=== PATIENT | male | born 1960 | race Caucasian/White ===

== ENCOUNTER 2018-12-19 16:10 | Inpatient (IN) | payer MEDICAID ==
[~2018-12-19] VITALS: Ht 185.4 cm; Wt 84.1 kg
[2018-12-19] MEDS ORDERED: LORazepam 2 MG/ML VIAL IM ONE (16:30)
[2018-12-19] MEDS ORDERED: DiphenhydrAMINE HCL 50 MG/ML VIAL IM ONE (16:30)
[2018-12-19] MEDS ORDERED: HALOPERIDOL LACTATE 5 MG/ML VIAL IM ONE (16:30)
[2018-12-19 17:05] LABS: EOSINOPHILS % (AUTO) 1.5 % (1.0-6.0); HEMATOCRIT 27.9 % (41-53); HEMOGLOBIN 9.4 g/dL (13.5-17.5); LYMPHOCYTES # (AUTO) 0.9 K/uL (1.0-4.8); LYMPHOCYTES % (AUTO) 14.1 % (22.0-44.0); MEAN CORPUSCULAR HEMOGLOBIN 30.2 pg (26.0-34.0); MEAN CORPUSCULAR HGB CONC 33.6 G/dL (31.0-37.0); MEAN CORPUSCULAR VOLUME 90 fL (80-100); MONOCYTES # (AUTO) 0.3 K/uL (0.1-1.0); MONOCYTES % (AUTO) 4.3 % (2.0-9.0); NEUTROPHILS # (AUTO) 4.8 K/uL (1.8-7.7); NEUTROPHILS % (AUTO) 79.1 % (40.0-70.0); PLATELET COUNT (AUTO) 383 K/uL (150-450); RED CELL DISTRIBUTION WIDTH 12.9 % (11.5-14.5)
[2018-12-19 17:15] LABS: ANION GAP 0 mmol/L (8-16); CALCIUM, TOTAL 8.2 mg/dL (8.8-10.5); CARBON DIOXIDE 31 mmol/L (22-29); CHLORIDE 104 mmol/L (98-107); CREATININE 1.21 mg/dL (0.60-1.30); GLOMERULAR FILTR. RATE CALC > 60 mL/min (>60); GLUCOSE,RANDOM 215 mg/dL (70-110); POTASSIUM 4.7 mmol/L (3.5-5.1); SODIUM SERUM 135 mmol/L (136-145); UREA NITROGEN, BLOOD 30 mg/dL (7-18)
[2018-12-19 17:31] LABS: ALANINE AMINOTRANSFERASE 14 U/L (12-78); ALBUMIN 1.7 g/dL (3.4-5.0); ALKALINE PHOSPHATASE 122 U/L (46-116); ASPARTATE AMINOTRANSFERASE 17 U/L (15-37); BILIRUBIN,TOTAL 0.1 mg/dL (0.1-1.0); THYROID STIMULATING HORMONE 2.62 uIU/mL (0.36-3.74)
[2018-12-19 20:02] LABS: APPEARANCE,URINE CLEAR (CLEAR); BILIRUBIN,URINE NEGATIVE (NEGATIVE); GLUCOSE, URINE (UA) 250 mg/dL (NEGATIVE); KETONES,URINE NEGATIVE (NEGATIVE); LEUKOCYTE ESTERASE ,URINE NEGATIVE (NEGATIVE); NITRATE,URINE NEGATIVE (NEGATIVE); OCCULT BLOOD,URINE NEGATIVE (NEGATIVE); PROTEIN,URINE SEE CONFIRM (NEGATIVE); UROBILINOGEN,URINE 0.2 mg/dL (<=1.0)
[2018-12-19 20:06] LABS: AMPHET/METH SCREEN,URINE NEGATIVE (NEGATIVE); BARBITURATE SCREEN, URINE NEGATIVE (NEGATIVE); BENZODIAZEPINES SCREEN,URINE NEGATIVE (NEGATIVE); CANNABINOID SCREEN,URINE NEGATIVE (NEGATIVE); COCAINE SCREEN,URINE NEGATIVE (NEGATIVE); METHADONE SCREEN, URINE NEGATIVE (NEGATIVE); OPIATE SCREEN,URINE NEGATIVE (NEGATIVE)
[2018-12-19 20:15] LABS: PHENCYCLIDINE SCREEN,URINE NEGATIVE (NEGATIVE)
[2018-12-19 20:21] LABS: SULFOSALICYLIC ACID,URINE 4+ (Negative)
[2018-12-19 20:22] LABS: RBC,URINE None Seen /HPF (0-2); WBC,URINE 0-2 /HPF (0-5)
[2018-12-19 20:23] LABS: BACTERIA,URINE Few /HPF (None Seen); SQUAMOUS EPITHELIAL CELL,UR Rare /LPF (None Seen)
[2018-12-20 13:19] LABS: GLUCOSE,POINT OF CARE 250 MG/DL (70-110)
[2018-12-20] MEDS ORDERED: LORazepam 2 MG TABLET PO PRN (13:30)
[2018-12-20] MEDS ORDERED: ZOLPIDEM TARTRATE 10 MG TABLET PO PRN (13:30)
[2018-12-20] MEDS ORDERED: OLANZapine 5 MG RAPDIS TABLET PO PRN (13:30)
[2018-12-20 16:28] VITALS: BP 134/78
[2018-12-20 16:34] LABS: GLUCOMETER DEV NAME(LOC) AHU.; GLUCOSE,POINT OF CARE 259 MG/DL (70-110)
== END 2018-12-20 21:00 | disposition short-term general hospital (02) | DRG 750 ==
LOC: EMS 16:12 → AHU 12-20 15:13
PROVIDERS: ADMIT Psychiatry & Neurology Psychiatry; ATTEND Psychiatry & Neurology Psychiatry
DX: F25.0 Schizoaffective disorder, bipolar type (principal); E66.01 Morbid (severe) obesity due to excess calories; F39 Unspecified mood [affective] disorder; E11.9 Type 2 diabetes mellitus without complications; Z98.84 Bariatric surgery status; Z89.429 Acquired absence of other toe(s), unspecified side; Z91.19 Patient's noncompliance with other medical treatment and regimen; Z68.24 Body mass index [BMI] 24.0-24.9, adult
CPT/HCPCS: 84443; 96372; 99291; G0378; G0480; J1200; J1630; J2060

== ENCOUNTER 2020-05-09 09:35 | Emergency (ER) | payer MEDICAID ==
[~2020-05-09] VITALS: Ht 175.3 cm; Wt 97.7 kg
[2020-05-09] MEDS ORDERED: SODIUM CHLORIDE 0.9% 1,000 ML IV ONE (10:30)
[2020-05-09 11:15] LABS: BASOPHILS % (AUTO) 0.7 % (0.0-2.0); EOSINOPHILS % (AUTO) 3.4 % (1.0-6.0); HEMATOCRIT 36.2 % (41-53); HEMOGLOBIN 11.9 g/dL (13.5-17.5); LYMPHOCYTES # (AUTO) 0.7 K/uL (1.0-4.8); LYMPHOCYTES % (AUTO) 11.1 % (22.0-44.0); MEAN CORPUSCULAR HEMOGLOBIN 30.5 pg (26.0-34.0); MEAN CORPUSCULAR HGB CONC 32.8 G/dL (31.0-37.0); MEAN CORPUSCULAR VOLUME 93 fL (80-100); MONOCYTES # (AUTO) 0.3 K/uL (0.1-1.0); MONOCYTES % (AUTO) 4.8 % (2.0-9.0); NEUTROPHILS # (AUTO) 5.3 K/uL (1.8-7.7); PLATELET COUNT (AUTO) 197 K/uL (150-450); RED CELL DISTRIBUTION WIDTH 12.8 % (11.5-14.5)
[2020-05-09 11:24] LABS: CALCIUM, TOTAL 8.7 mg/dL (8.8-10.5); CREATININE 2.62 mg/dL (0.60-1.30); POTASSIUM 4.6 mmol/L (3.5-5.1)
[2020-05-09 11:29] LABS: ALBUMIN 2.5 g/dL (3.4-5.0); BILIRUBIN,TOTAL 0.2 mg/dL (0.1-1.0); TOTAL PROTEIN, SERUM 6.9 g/dL (6.4-8.2)
[2020-05-09 15:00] VITALS: BP 129/69
== END 2020-05-09 15:28 | disposition home or self-care (01) ==
LOC: EMS 09:36
DX: S81.801A Unspecified open wound, right lower leg, initial encounter (principal); E11.65 Type 2 diabetes mellitus with hyperglycemia; F31.9 Bipolar disorder, unspecified; F20.9 Schizophrenia, unspecified; F17.200 Nicotine dependence, unspecified, uncomplicated; Z88.5 Allergy status to narcotic agent; W50.3XXA Accidental bite by another person, initial encounter; Y93.89 Activity, other specified; Y92.89 Other specified places as the place of occurrence of the external cause; Y99.8 Other external cause status
CPT/HCPCS: 36415; 80053; 85025; 96360; 99283; J7030

== ENCOUNTER 2020-10-07 12:47 | Inpatient (IN) | payer MEDICAID ==
[~2020-10-07] VITALS: Ht 182.9 cm; Wt 108.5 kg
[2020-10-07 14:56] LABS: COVID AG,FIA SOURCE NASAL SWAB
[2020-10-07 15:16] LABS: BASOPHILS % (AUTO) 0.2 % (0.0-2.0); EOSINOPHILS % (AUTO) 0.6 % (1.0-6.0); HEMATOCRIT 34.9 % (41-53); HEMOGLOBIN 11.5 g/dL (13.5-17.5); LYMPHOCYTES # (AUTO) 0.6 K/uL (1.0-4.8); LYMPHOCYTES % (AUTO) 9.6 % (22.0-44.0); MEAN CORPUSCULAR HEMOGLOBIN 30.2 pg (26.0-34.0); MEAN CORPUSCULAR VOLUME 92 fL (80-100); MONOCYTES # (AUTO) 0.5 K/uL (0.1-1.0); MONOCYTES % (AUTO) 9.2 % (2.0-9.0); NEUTROPHILS # (AUTO) 4.6 K/uL (1.8-7.7); NEUTROPHILS % (AUTO) 80.4 % (40.0-70.0); PLATELET COUNT (AUTO) 202 K/uL (150-450); RED BLOOD CELL COUNT(AUTO) 3.81 MIL/uL (4.50-5.90); RED CELL DISTRIBUTION WIDTH 13.3 % (11.5-14.5)
[2020-10-07 15:33] LABS: CALCIUM, TOTAL 8.2 mg/dL (8.8-10.5); CREATININE 3.21 mg/dL (0.60-1.30); POTASSIUM 4.6 mmol/L (3.5-5.1)
[2020-10-07 15:40] LABS: BILIRUBIN,TOTAL 0.4 mg/dL (0.1-1.0); TOTAL PROTEIN, SERUM 6.7 g/dL (6.4-8.2)
[2020-10-07] MEDS ORDERED: ASPIRIN 325 MG TABLET PO ONE (19:00)
[2020-10-07 20:18] LABS: C-REACTIVE PROTEIN QUANT 15.27 mg/dL (0.00-0.30)
[2020-10-07] MEDS ORDERED: SODIUM CHLORIDE 0.9% 1,000 ML IV ONE (22:00)
[2020-10-07] MEDS ORDERED: DEXTROSE 50%-WATER 25 GM/50 ML SYRINGE IVP PRN (22:00)
[2020-10-07] MEDS ORDERED: HEPARIN SODIUM,PORCINE 5,000 UNITS/ML VIAL IVP PRN (22:00)
[2020-10-07 22:32] LABS: PROTHROMBIN TIME 10.9 SEC (9.4-11.6)
[2020-10-08] MEDS: HEPARIN SODIUM,PORCINE 5,000 UNITS/ML VIAL IVP PRN ×2 (00:01→06:40)
[2020-10-08] MEDS: HEPARIN SODIUM 25000 UNITS/D5W 250 ML IV PRN ×2 (00:29→16:05)
[2020-10-08] MEDS: ACETAMINOPHEN 325 MG TABLET PO PRN ×2 (03:10→09:58)
[2020-10-08 04:42] LABS: ABG A-A DIFF O2 597.9 mmHg (10-20.0); ABG BASE EXCESS -8.7 mmol/L (-2.0-3.0); ABG CARBOXYHEMOGLOBIN 0.3 % (0.0-1.5); ABG HCO3 18.1 mmol/L (22.0-26.0); ABG METHEMOGLOBIN 0.2 % (0.0-1.5); ABG OXYGEN CONTENT 16.5 mL/dL (15.0-23.0); ABG OXYGEN SATURATION 94.4 % (95.0-98.0); ABG OXYHEMOGLOBIN 93.9 % (94.0-100.0); ABG PCO2 36 mmHg (35-45); ABG PH 7.305 (7.35-7.450); ABG TOTAL HEMOGLOBIN 12.5 G/dL (12.0-18.0); SITE, BLOOD GAS LFT RADIAL; SOURCE, BLOOD GAS ARTERIAL; TEMPERATURE, FAHRENHEIT, BG 99.9 FAHREN (96.0-98.6)
[2020-10-08 04:43] LABS: O2 DEVICE,BLOOD GAS NRB (ROOM AIR)
[2020-10-08 06:07] LABS: BASOPHILS % (AUTO) 0.2 % (0.0-2.0); EOSINOPHILS % (AUTO) 0.2 % (1.0-6.0); HEMATOCRIT 33.7 % (41-53); HEMOGLOBIN 11.2 g/dL (13.5-17.5); LYMPHOCYTES # (AUTO) 0.3 K/uL (1.0-4.8); LYMPHOCYTES % (AUTO) 2.9 % (22.0-44.0); MEAN CORPUSCULAR HEMOGLOBIN 30.3 pg (26.0-34.0); MEAN CORPUSCULAR HGB CONC 33.2 G/dL (31.0-37.0); MEAN CORPUSCULAR VOLUME 91 fL (80-100); MONOCYTES # (AUTO) 0.5 K/uL (0.1-1.0); MONOCYTES % (AUTO) 5.1 % (2.0-9.0); NEUTROPHILS # (AUTO) 8.6 K/uL (1.8-7.7); PLATELET COUNT (AUTO) 222 K/uL (150-450); RED BLOOD CELL COUNT(AUTO) 3.68 MIL/uL (4.50-5.90); RED CELL DISTRIBUTION WIDTH 13.5 % (11.5-14.5)
[2020-10-08 06:13] LABS: NEUTROPHILS % (AUTO) 91.6 % (40.0-70.0)
[2020-10-08 06:19] LABS: D-DIMER 1.55 mg/L FEU (0.00-0.50)
[2020-10-08 06:35] LABS: ALBUMIN 1.8 g/dL (3.4-5.0); BILIRUBIN,TOTAL 0.4 mg/dL (0.1-1.0); C-REACTIVE PROTEIN QUANT 13.2 mg/dL (0.00-0.30); CALCIUM, TOTAL 7.9 mg/dL (8.8-10.5); CREATININE 3.25 mg/dL (0.60-1.30); POTASSIUM 4.5 mmol/L (3.5-5.1); TOTAL PROTEIN, SERUM 6.6 g/dL (6.4-8.2)
[2020-10-08] MEDS: INSULIN LISPRO 100 UNITS/ML SQ PRN ×4 (06:57→21:17)
[2020-10-08] MEDS ORDERED: DEXTROSE 50%-WATER 25 GM/50 ML SYRINGE IVP PRN (07:00)
[2020-10-08 07:01] LABS: GLUCOSE,POINT OF CARE 186 MG/DL (70-110)
[2020-10-08 08:40] LABS: GLUCOSE,POINT OF CARE 162 MG/DL (70-110)
[2020-10-08] MEDS: CARVEDILOL 3.125 MG TABLET PO SCH ×2 (09:58→20:16)
[2020-10-08] MEDS: DEXAMETHASONE SOD PHOS 4 MG/ML VIAL IVP SCH (09:58)
[2020-10-08] MEDS: ASPIRIN 81 MG CHEWABLE TABLET PO SCH (09:59)
[2020-10-08 10:23] VITALS: BP 141/71
[2020-10-08] MEDS ORDERED: SODIUM CHLORIDE 0.9% 500 ML IV ONE (11:33)
[2020-10-08] MEDS: AZITHROMYCIN 500 MG/NS 250 ML IV SCH (11:39)
[2020-10-08] MEDS ORDERED: REMDESIVIR 200 MG in SODIUM CHLORIDE 0.9% 250 ML IV ONE (12:00)
[2020-10-08 14:36] LABS: GLUCOMETER DEV NAME(LOC) 5N.3; GLUCOSE,POINT OF CARE 203 MG/DL (70-110)
[2020-10-08 15:26] VITALS: BP 130/74
[2020-10-08 20:00] VITALS: BP 155/83
[2020-10-08] MEDS ORDERED: INSULIN GLARGINE,HUM.REC.ANLOG 100 UNITS/ML SQ SCH (21:00)
[2020-10-08] MEDS: INSULIN GLARGINE,HUM.REC.ANLOG 100 UNITS/ML SQ SCH (21:17)
[2020-10-09] VITALS (7 sets, daily range): BP systolic 100–155; BP diastolic 54–77
[2020-10-09] MEDS: ACETAMINOPHEN 325 MG TABLET PO PRN (06:07)
[2020-10-09] MEDS: INSULIN LISPRO 100 UNITS/ML SQ PRN ×3 (06:09→17:14)
[2020-10-09 06:30] LABS: EOSINOPHILS % (AUTO) 0 % (1.0-6.0); HEMATOCRIT 32.7 % (41-53); HEMOGLOBIN 10.5 g/dL (13.5-17.5); LYMPHOCYTES # (AUTO) 0.4 K/uL (1.0-4.8); LYMPHOCYTES % (AUTO) 2.3 % (22.0-44.0); MEAN CORPUSCULAR HEMOGLOBIN 29.3 pg (26.0-34.0); MEAN CORPUSCULAR HGB CONC 32.2 G/dL (31.0-37.0); MEAN CORPUSCULAR VOLUME 91 fL (80-100); MONOCYTES # (AUTO) 0.6 K/uL (0.1-1.0); MONOCYTES % (AUTO) 3.6 % (2.0-9.0); NEUTROPHILS # (AUTO) 15.9 K/uL (1.8-7.7); PLATELET COUNT (AUTO) 278 K/uL (150-450); RED BLOOD CELL COUNT(AUTO) 3.59 MIL/uL (4.50-5.90); RED CELL DISTRIBUTION WIDTH 13.6 % (11.5-14.5)
[2020-10-09 06:33] LABS: NEUTROPHILS % (AUTO) 94.1 % (40.0-70.0)
[2020-10-09 06:42] LABS: D-DIMER 1.51 mg/L FEU (0.00-0.50)
[2020-10-09 07:15] LABS: ALBUMIN 1.6 g/dL (3.4-5.0); BILIRUBIN,TOTAL 0.4 mg/dL (0.1-1.0); C-REACTIVE PROTEIN QUANT 24.77 mg/dL (0.00-0.30); CALCIUM, TOTAL 7.9 mg/dL (8.8-10.5); CREATININE 3.6 mg/dL (0.60-1.30); POTASSIUM 4.9 mmol/L (3.5-5.1); TOTAL PROTEIN, SERUM 6.3 g/dL (6.4-8.2)
[2020-10-09] MEDS: CARVEDILOL 3.125 MG TABLET PO SCH (09:00)
[2020-10-09] MEDS ORDERED: CHOLECALCIFEROL (VIT D3) 1,000 UNITS [25 MCG] TABLET PO SCH (09:00)
[2020-10-09] MEDS ORDERED: FAMOTIDINE 20 MG TABLET PO SCH (09:00)
[2020-10-09] MEDS: ZINC SULFATE 220 MG CAPSULE PO SCH (09:40)
[2020-10-09] MEDS: DEXAMETHASONE SOD PHOS 4 MG/ML VIAL IVP SCH (09:40)
[2020-10-09] MEDS: ASPIRIN 81 MG CHEWABLE TABLET PO SCH (09:40)
[2020-10-09] MEDS: HEPARIN SODIUM,PORCINE 5,000 UNITS/ML VIAL IVP PRN (11:36)
[2020-10-09] MEDS: SODIUM CHLORIDE 1 GM TABLET PO SCH (11:54)
[2020-10-09] MEDS: CHOLECALCIFEROL (VIT D3) 1,000 UNITS [25 MCG] TABLET PO SCH (11:54)
[2020-10-09] MEDS ORDERED: REMDESIVIR 100 MG in SODIUM CHLORIDE 0.9% 250 ML IV SCH (12:00)
[2020-10-09] MEDS: HEPARIN SODIUM 25000 UNITS/D5W 250 ML IV PRN (12:01)
[2020-10-09] MEDS: AZITHROMYCIN 500 MG/NS 250 ML IV SCH (12:02)
[2020-10-09] MEDS: FAMOTIDINE 20 MG TABLET PO SCH (12:02)
[2020-10-09] MEDS ORDERED: SODIUM CHLORIDE 0.9% 1,000 ML IV ONE (13:30)
[2020-10-09] MEDS ORDERED: REMDESIVIR 200 MG in SODIUM CHLORIDE 0.9% 250 ML IV ONE (15:00)
[2020-10-09 21:32] LABS: GLUCOMETER DEV NAME(LOC) 5S.1; GLUCOSE,POINT OF CARE 299 MG/DL (70-110)
[2020-10-10] MEDS: CARVEDILOL 3.125 MG TABLET PO SCH ×3 (00:18→22:03)
[2020-10-10] MEDS: SODIUM CHLORIDE 1 GM TABLET PO SCH ×3 (00:18→22:03)
[2020-10-10] MEDS: INSULIN LISPRO 100 UNITS/ML SQ PRN ×5 (00:21→22:12)
[2020-10-10] MEDS: INSULIN GLARGINE,HUM.REC.ANLOG 100 UNITS/ML SQ SCH ×2 (00:22→22:13)
[2020-10-10] MEDS: HEPARIN SODIUM 25000 UNITS/D5W 250 ML IV PRN ×2 (01:18→16:04)
[2020-10-10 04:38] VITALS: BP 142/81
[2020-10-10 05:00] LABS: GLUCOMETER DEV NAME(LOC) 5N.1B; GLUCOSE,POINT OF CARE 309 MG/DL (70-110)
[2020-10-10 06:18] LABS: BASOPHILS % (AUTO) 0.1 % (0.0-2.0); EOSINOPHILS % (AUTO) 0 % (1.0-6.0); HEMATOCRIT 30.6 % (41-53); HEMOGLOBIN 10.6 g/dL (13.5-17.5); LYMPHOCYTES # (AUTO) 0.2 K/uL (1.0-4.8); LYMPHOCYTES % (AUTO) 1.7 % (22.0-44.0); MEAN CORPUSCULAR HEMOGLOBIN 30.9 pg (26.0-34.0); MEAN CORPUSCULAR HGB CONC 34.5 G/dL (31.0-37.0); MEAN CORPUSCULAR VOLUME 90 fL (80-100); MONOCYTES # (AUTO) 0.6 K/uL (0.1-1.0); MONOCYTES % (AUTO) 4.2 % (2.0-9.0); NEUTROPHILS # (AUTO) 13.9 K/uL (1.8-7.7); PLATELET COUNT (AUTO) 296 K/uL (150-450); RED BLOOD CELL COUNT(AUTO) 3.42 MIL/uL (4.50-5.90); RED CELL DISTRIBUTION WIDTH 13.5 % (11.5-14.5)
[2020-10-10 06:49] LABS: D-DIMER 1.76 mg/L FEU (0.00-0.50)
[2020-10-10 06:53] LABS: GLUCOMETER DEV NAME(LOC) 5N.1B; GLUCOSE,POINT OF CARE 222 MG/DL (70-110)
[2020-10-10 07:07] LABS: ALBUMIN 1.5 g/dL (3.4-5.0); BILIRUBIN,TOTAL 0.2 mg/dL (0.1-1.0); C-REACTIVE PROTEIN QUANT 23.15 mg/dL (0.00-0.30); CALCIUM, TOTAL 8.1 mg/dL (8.8-10.5); CREATININE 4.14 mg/dL (0.60-1.30); POTASSIUM 4.9 mmol/L (3.5-5.1); TOTAL PROTEIN, SERUM 6.3 g/dL (6.4-8.2)
[2020-10-10] MEDS: HEPARIN SODIUM,PORCINE 5,000 UNITS/ML VIAL IVP PRN (07:40)
[2020-10-10 07:52] VITALS: BP 137/82
[2020-10-10] MEDS: ASPIRIN 81 MG CHEWABLE TABLET PO SCH (08:57)
[2020-10-10] MEDS: CHOLECALCIFEROL (VIT D3) 1,000 UNITS [25 MCG] TABLET PO SCH (08:57)
[2020-10-10] MEDS: FAMOTIDINE 20 MG TABLET PO SCH (08:57)
[2020-10-10] MEDS: ZINC SULFATE 220 MG CAPSULE PO SCH (08:57)
[2020-10-10] MEDS: DEXAMETHASONE SOD PHOS 4 MG/ML VIAL IVP SCH (08:58)
[2020-10-10 11:14] VITALS: BP 108/61
[2020-10-10] MEDS: AZITHROMYCIN 500 MG/NS 250 ML IV SCH (11:14)
[2020-10-10] MEDS: SODIUM BICARBONATE 75 MEQ in SODIUM CHLORIDE 0.45% 1,000 ML IV SCH (12:59)
[2020-10-10 15:32] LABS: APPEARANCE,URINE TURBID (CLEAR); GLUCOSE, URINE (UA) 250 mg/dL (NEGATIVE); KETONES,URINE NEGATIVE (NEGATIVE); LEUKOCYTE ESTERASE ,URINE LARGE (NEGATIVE); NITRATE,URINE NEGATIVE (NEGATIVE); OCCULT BLOOD,URINE MODERATE (NEGATIVE); PROTEIN,URINE SEE CONFIRM (NEGATIVE); UROBILINOGEN,URINE 0.2 mg/dL (<=1.0)
[2020-10-10 15:38] LABS: SODIUM,URINE RANDOM 49 mmol/l (20-110)
[2020-10-10 15:52] LABS: CREATININE,URINE RANDOM 121.1 mg/dL (30.0-125.0)
[2020-10-10 15:59] LABS: PROTEIN,URINE RANDOM 490 mg/dL (0-11.9)
[2020-10-10] MEDS ORDERED: REMDESIVIR 100 MG in SODIUM CHLORIDE 0.9% 250 ML IV SCH (16:00)
[2020-10-10] MEDS: CefTRIAXone 1 GM/DEXTROSE 50 ML IV SCH (16:03)
[2020-10-10 16:06] VITALS: BP 133/71
[2020-10-10 16:12] LABS: BILIRUBIN,URINE PRELIM. POSITIVE (NEGATIVE)
[2020-10-10 16:24] LABS: SULFOSALICYLIC ACID,URINE 4+ (Negative)
[2020-10-10 16:28] LABS: BACTERIA,URINE Many /HPF (None Seen); WBC,URINE >100 /HPF (0-5)
[2020-10-10 16:29] LABS: SQUAMOUS EPITHELIAL CELL,UR Few /LPF (None Seen)
[2020-10-10 19:02] LABS: GLUCOMETER DEV NAME(LOC) 5N.3; GLUCOSE,POINT OF CARE 230 MG/DL (70-110)
[2020-10-10 19:02] LABS: GLUCOMETER DEV NAME(LOC) 5S.1; GLUCOSE,POINT OF CARE 265 MG/DL (70-110)
[2020-10-10 19:02] LABS: GLUCOMETER DEV NAME(LOC) 5N.3; GLUCOSE,POINT OF CARE 353 MG/DL (70-110)
[2020-10-10 19:03] LABS: GLUCOMETER DEV NAME(LOC) 5N.3; GLUCOSE,POINT OF CARE 287 MG/DL (70-110)
[2020-10-10 19:04] LABS: GLUCOMETER DEV NAME(LOC) 5N.3; GLUCOSE,POINT OF CARE 323 MG/DL (70-110)
[2020-10-10 19:38] VITALS: BP 134/79
[2020-10-10 21:59] LABS: GLUCOMETER DEV NAME(LOC) 5N.1B; GLUCOSE,POINT OF CARE 313 MG/DL (70-110)
[2020-10-10 22:49] LABS: GLUCOMETER DEV NAME(LOC) 5N.3; GLUCOSE,POINT OF CARE 337 MG/DL (70-110)
[2020-10-10 23:46] VITALS: BP 140/79
[2020-10-11 04:28] VITALS: BP 129/72
[2020-10-11] MEDS: SODIUM BICARBONATE 75 MEQ in SODIUM CHLORIDE 0.45% 1,000 ML IV SCH ×2 (05:31→21:53)
[2020-10-11] MEDS: INSULIN LISPRO 100 UNITS/ML SQ PRN ×4 (05:51→21:57)
[2020-10-11 07:22] LABS: BASOPHILS % (AUTO) 0.1 % (0.0-2.0); EOSINOPHILS % (AUTO) 0 % (1.0-6.0); HEMATOCRIT 27.7 % (41-53); HEMOGLOBIN 9.1 g/dL (13.5-17.5); LYMPHOCYTES # (AUTO) 0.4 K/uL (1.0-4.8); MEAN CORPUSCULAR HGB CONC 32.8 G/dL (31.0-37.0); MEAN CORPUSCULAR VOLUME 92 fL (80-100); MONOCYTES # (AUTO) 0.3 K/uL (0.1-1.0); MONOCYTES % (AUTO) 3.5 % (2.0-9.0); NEUTROPHILS # (AUTO) 9.1 K/uL (1.8-7.7); NEUTROPHILS % (AUTO) 92.4 % (40.0-70.0); PLATELET COUNT (AUTO) 304 K/uL (150-450); RED BLOOD CELL COUNT(AUTO) 3.03 MIL/uL (4.50-5.90); RED CELL DISTRIBUTION WIDTH 13.4 % (11.5-14.5)
[2020-10-11 07:25] VITALS: BP 132/80
[2020-10-11 07:47] LABS: D-DIMER 1.43 mg/L FEU (0.00-0.50)
[2020-10-11 08:09] LABS: ALBUMIN 1.4 g/dL (3.4-5.0); BILIRUBIN,TOTAL 0.3 mg/dL (0.1-1.0); C-REACTIVE PROTEIN QUANT 16.54 mg/dL (0.00-0.30); CALCIUM, TOTAL 8.1 mg/dL (8.8-10.5); CREATININE 4.12 mg/dL (0.60-1.30); POTASSIUM 5.1 mmol/L (3.5-5.1); TOTAL PROTEIN, SERUM 6.2 g/dL (6.4-8.2)
[2020-10-11] MEDS: SODIUM CHLORIDE 1 GM TABLET PO SCH (08:41)
[2020-10-11] MEDS: CHOLECALCIFEROL (VIT D3) 1,000 UNITS [25 MCG] TABLET PO SCH (08:41)
[2020-10-11] MEDS: CARVEDILOL 3.125 MG TABLET PO SCH ×2 (08:42→21:55)
[2020-10-11] MEDS: ZINC SULFATE 220 MG CAPSULE PO SCH (08:42)
[2020-10-11] MEDS: ASPIRIN 81 MG CHEWABLE TABLET PO SCH (08:42)
[2020-10-11] MEDS: FAMOTIDINE 20 MG TABLET PO SCH (08:42)
[2020-10-11] MEDS: DEXAMETHASONE SOD PHOS 4 MG/ML VIAL IVP SCH (08:47)
[2020-10-11 10:37] LABS: GLUCOMETER DEV NAME(LOC) 5S.1; GLUCOSE,POINT OF CARE 317 MG/DL (70-110)
[2020-10-11 11:20] VITALS: BP 128/73
[2020-10-11] MEDS: AZITHROMYCIN 500 MG/NS 250 ML IV SCH (11:35)
[2020-10-11] MEDS ORDERED: SODIUM CHLORIDE 0.9% 250 ML IV ONE (14:34)
[2020-10-11] MEDS: CefTRIAXone 1 GM/DEXTROSE 50 ML IV SCH (14:45)
[2020-10-11 15:55] VITALS: BP 126/78
[2020-10-11 16:28] LABS: GLUCOMETER DEV NAME(LOC) 5S.1; GLUCOSE,POINT OF CARE 325 MG/DL (70-110)
[2020-10-11 17:17] LABS: GLUCOMETER DEV NAME(LOC) 5S.2B; GLUCOSE,POINT OF CARE 383 MG/DL (70-110)
[2020-10-11] MEDS ORDERED: INSULIN GLARGINE,HUM.REC.ANLOG 100 UNITS/ML SQ SCH (21:00)
[2020-10-11 21:34] VITALS: BP 130/72
[2020-10-12 00:15] VITALS: BP 142/86
[2020-10-12] MEDS: HEPARIN SODIUM 25000 UNITS/D5W 250 ML IV PRN ×2 (00:23→14:30)
[2020-10-12 06:03] VITALS: BP 150/93
[2020-10-12] MEDS: INSULIN LISPRO 100 UNITS/ML SQ PRN ×4 (06:35→21:27)
[2020-10-12 07:43] LABS: GLUCOMETER DEV NAME(LOC) 5S.2B; GLUCOSE,POINT OF CARE 352 MG/DL (70-110)
[2020-10-12 07:44] LABS: C-REACTIVE PROTEIN QUANT 8.72 mg/dL (0.00-0.30); CALCIUM, TOTAL 8.2 mg/dL (8.8-10.5); CREATININE 3.33 mg/dL (0.60-1.30); POTASSIUM 5.1 mmol/L (3.5-5.1)
[2020-10-12 08:07] VITALS: BP 153/56
[2020-10-12] MEDS: HEPARIN SODIUM,PORCINE 5,000 UNITS/ML VIAL IVP PRN ×2 (09:49→17:56)
[2020-10-12] MEDS: ASPIRIN 81 MG CHEWABLE TABLET PO SCH (09:50)
[2020-10-12] MEDS: CARVEDILOL 3.125 MG TABLET PO SCH ×2 (09:50→20:37)
[2020-10-12] MEDS: ZINC SULFATE 220 MG CAPSULE PO SCH (09:50)
[2020-10-12] MEDS: DEXAMETHASONE SOD PHOS 4 MG/ML VIAL IVP SCH (09:51)
[2020-10-12] MEDS: FAMOTIDINE 20 MG TABLET PO SCH (09:51)
[2020-10-12] MEDS: CHOLECALCIFEROL (VIT D3) 1,000 UNITS [25 MCG] TABLET PO SCH (09:53)
[2020-10-12] MEDS: INSULIN GLARGINE,HUM.REC.ANLOG 100 UNITS/ML SQ SCH ×2 (10:16→21:28)
[2020-10-12] MEDS: AZITHROMYCIN 500 MG/NS 250 ML IV SCH (11:09)
[2020-10-12 11:19] LABS: GLUCOMETER DEV NAME(LOC) 5N.3; GLUCOSE,POINT OF CARE 473 MG/DL (70-110)
[2020-10-12 11:22] VITALS: BP 155/91
[2020-10-12] MEDS: SODIUM BICARBONATE 75 MEQ in SODIUM CHLORIDE 0.45% 1,000 ML IV SCH (13:18)
[2020-10-12] MEDS: CefTRIAXone 1 GM/DEXTROSE 50 ML IV SCH (14:30)
[2020-10-12 16:26] VITALS: BP 150/86
[2020-10-12 20:10] VITALS: BP 144/91
[2020-10-12 20:57] LABS: GLUCOMETER DEV NAME(LOC) 5S.1; GLUCOSE,POINT OF CARE 369 MG/DL (70-110)
[2020-10-12 20:57] LABS: GLUCOMETER DEV NAME(LOC) 5S.1; GLUCOSE,POINT OF CARE 358 MG/DL (70-110)
[2020-10-13] VITALS (7 sets, daily range): BP systolic 112–152; BP diastolic 70–91
[2020-10-13] MEDS: HEPARIN SODIUM,PORCINE 5,000 UNITS/ML VIAL IVP PRN (01:22)
[2020-10-13] MEDS: SODIUM BICARBONATE 75 MEQ in SODIUM CHLORIDE 0.45% 1,000 ML IV SCH (03:09)
[2020-10-13] MEDS: HEPARIN SODIUM 25000 UNITS/D5W 250 ML IV PRN ×2 (03:10→15:30)
[2020-10-13] MEDS: INSULIN LISPRO 100 UNITS/ML SQ PRN ×4 (07:00→21:16)
[2020-10-13 07:20] LABS: GLUCOMETER DEV NAME(LOC) 5S.1; GLUCOSE,POINT OF CARE 294 MG/DL (70-110)
[2020-10-13 08:32] LABS: ALBUMIN 1.5 g/dL (3.4-5.0); BILIRUBIN,TOTAL 0.3 mg/dL (0.1-1.0); CALCIUM, TOTAL 7.8 mg/dL (8.8-10.5); CREATININE 2.74 mg/dL (0.60-1.30); POTASSIUM 4.1 mmol/L (3.5-5.1); TOTAL PROTEIN, SERUM 5.7 g/dL (6.4-8.2)
[2020-10-13 08:41] LABS: C-REACTIVE PROTEIN QUANT 4.45 mg/dL (0.00-0.30)
[2020-10-13] MEDS: FAMOTIDINE 20 MG TABLET PO SCH (09:36)
[2020-10-13] MEDS: DEXAMETHASONE SOD PHOS 4 MG/ML VIAL IVP SCH (09:38)
[2020-10-13] MEDS: ZINC SULFATE 220 MG CAPSULE PO SCH (09:39)
[2020-10-13] MEDS: CARVEDILOL 3.125 MG TABLET PO SCH ×2 (09:39→21:11)
[2020-10-13] MEDS: ASPIRIN 81 MG CHEWABLE TABLET PO SCH (09:40)
[2020-10-13] MEDS: CHOLECALCIFEROL (VIT D3) 1,000 UNITS [25 MCG] TABLET PO SCH (09:41)
[2020-10-13] MEDS: INSULIN GLARGINE,HUM.REC.ANLOG 100 UNITS/ML SQ SCH ×2 (09:42→21:14)
[2020-10-13] MEDS: AZITHROMYCIN 500 MG/NS 250 ML IV SCH (11:57)
[2020-10-13] MEDS: CefTRIAXone 1 GM/DEXTROSE 50 ML IV SCH (14:38)
[2020-10-13 21:59] LABS: GLUCOMETER DEV NAME(LOC) 5S.1; GLUCOSE,POINT OF CARE 277 MG/DL (70-110)
[2020-10-14] MEDS: HEPARIN SODIUM 25000 UNITS/D5W 250 ML IV PRN ×2 (03:46→15:13)
[2020-10-14] MEDS: INSULIN LISPRO 100 UNITS/ML SQ PRN ×4 (05:30→22:20)
[2020-10-14 05:42] VITALS: BP 145/90
[2020-10-14 06:44] LABS: C-REACTIVE PROTEIN QUANT 2.76 mg/dL (0.00-0.30); CALCIUM, TOTAL 8.5 mg/dL (8.8-10.5); CREATININE 2.38 mg/dL (0.60-1.30); POTASSIUM 4.1 mmol/L (3.5-5.1)
[2020-10-14 06:52] LABS: GLUCOMETER DEV NAME(LOC) 5N.3; GLUCOSE,POINT OF CARE 367 MG/DL (70-110)
[2020-10-14 06:53] LABS: GLUCOMETER DEV NAME(LOC) 5N.1B; GLUCOSE,POINT OF CARE 293 MG/DL (70-110)
[2020-10-14 06:53] LABS: GLUCOMETER DEV NAME(LOC) 5N.3; GLUCOSE,POINT OF CARE 315 MG/DL (70-110)
[2020-10-14 06:54] LABS: GLUCOMETER DEV NAME(LOC) 5N.3; GLUCOSE,POINT OF CARE 328 MG/DL (70-110)
[2020-10-14 08:28] VITALS: BP 149/92
[2020-10-14] MEDS: FAMOTIDINE 20 MG TABLET PO SCH (10:41)
[2020-10-14] MEDS: ASPIRIN 81 MG CHEWABLE TABLET PO SCH (10:41)
[2020-10-14] MEDS: ZINC SULFATE 220 MG CAPSULE PO SCH (10:41)
[2020-10-14] MEDS: CARVEDILOL 3.125 MG TABLET PO SCH ×2 (10:41→21:42)
[2020-10-14] MEDS: CHOLECALCIFEROL (VIT D3) 1,000 UNITS [25 MCG] TABLET PO SCH (10:41)
[2020-10-14] MEDS: INSULIN GLARGINE,HUM.REC.ANLOG 100 UNITS/ML SQ SCH ×2 (10:41→22:17)
[2020-10-14] MEDS: DEXAMETHASONE SOD PHOS 4 MG/ML VIAL IVP SCH (10:41)
[2020-10-14] MEDS: AZITHROMYCIN 500 MG/NS 250 ML IV SCH (11:40)
[2020-10-14 11:50] VITALS: BP 132/82
[2020-10-14 12:17] LABS: GLUCOMETER DEV NAME(LOC) 5N.1B; GLUCOSE,POINT OF CARE 256 MG/DL (70-110)
[2020-10-14] MEDS: CefTRIAXone 1 GM/DEXTROSE 50 ML IV SCH (15:04)
[2020-10-14 16:07] VITALS: BP 139/79
[2020-10-14 18:17] LABS: GLUCOMETER DEV NAME(LOC) 5N.1B; GLUCOSE,POINT OF CARE 329 MG/DL (70-110)
[2020-10-14 20:41] VITALS: BP 153/92
[2020-10-15] VITALS (7 sets, daily range): BP systolic 121–160; BP diastolic 72–97
[2020-10-15] MEDS: HEPARIN SODIUM 25000 UNITS/D5W 250 ML IV PRN ×2 (04:20→16:26)
[2020-10-15] MEDS: INSULIN LISPRO 100 UNITS/ML SQ PRN ×4 (05:39→21:00)
[2020-10-15 07:26] LABS: GLUCOMETER DEV NAME(LOC) 5N.1B; GLUCOSE,POINT OF CARE 271 MG/DL (70-110)
[2020-10-15 07:59] LABS: ALBUMIN 1.6 g/dL (3.4-5.0); BILIRUBIN,TOTAL 0.2 mg/dL (0.1-1.0); C-REACTIVE PROTEIN QUANT 1.7 mg/dL (0.00-0.30); CALCIUM, TOTAL 8.3 mg/dL (8.8-10.5); CREATININE 2.25 mg/dL (0.60-1.30); MAGNESIUM 1.2 mg/dL (1.80-2.40); POTASSIUM 3.9 mmol/L (3.5-5.1); TOTAL PROTEIN, SERUM 5.6 g/dL (6.4-8.2)
[2020-10-15] MEDS: CHOLECALCIFEROL (VIT D3) 1,000 UNITS [25 MCG] TABLET PO SCH (08:04)
[2020-10-15] MEDS: DEXAMETHASONE SOD PHOS 4 MG/ML VIAL IVP SCH (08:04)
[2020-10-15] MEDS: ASPIRIN 81 MG CHEWABLE TABLET PO SCH (08:04)
[2020-10-15] MEDS: FAMOTIDINE 20 MG TABLET PO SCH (08:04)
[2020-10-15] MEDS: ZINC SULFATE 220 MG CAPSULE PO SCH (08:04)
[2020-10-15] MEDS: CARVEDILOL 3.125 MG TABLET PO SCH ×2 (08:05→20:56)
[2020-10-15] MEDS: INSULIN GLARGINE,HUM.REC.ANLOG 100 UNITS/ML SQ SCH ×2 (08:12→20:59)
[2020-10-15] MEDS ORDERED: MAGNESIUM SULFATE 4 GM/WATER 100 ML IV ONE (08:15)
[2020-10-15] MEDS ORDERED: REMDESIVIR 200 MG in SODIUM CHLORIDE 0.9% 250 ML IV ONE (15:30)
[2020-10-15] MEDS: AZITHROMYCIN 500 MG/NS 250 ML IV SCH (16:18)
[2020-10-15 16:42] LABS: GLUCOMETER DEV NAME(LOC) 5S.2B; GLUCOSE,POINT OF CARE 211 MG/DL (70-110)
[2020-10-15] MEDS: CefTRIAXone 1 GM/DEXTROSE 50 ML IV SCH (17:46)
[2020-10-15] MEDS: ASCORBIC ACID 500 MG TABLET PO SCH (20:56)
[2020-10-16 03:59] VITALS: BP 131/83
[2020-10-16] MEDS: INSULIN LISPRO 100 UNITS/ML SQ PRN ×3 (06:16→20:27)
[2020-10-16 06:45] LABS: GLUCOMETER DEV NAME(LOC) 5N.1B; GLUCOSE,POINT OF CARE 297 MG/DL (70-110)
[2020-10-16 06:45] LABS: GLUCOMETER DEV NAME(LOC) 5N.1B; GLUCOSE,POINT OF CARE 276 MG/DL (70-110)
[2020-10-16 06:46] LABS: GLUCOMETER DEV NAME(LOC) 5N.1B; GLUCOSE,POINT OF CARE 246 MG/DL (70-110)
[2020-10-16] MEDS: HEPARIN SODIUM 25000 UNITS/D5W 250 ML IV PRN ×2 (06:54→22:00)
[2020-10-16] MEDS: DEXAMETHASONE SOD PHOS 4 MG/ML VIAL IVP SCH (08:29)
[2020-10-16] MEDS: ASCORBIC ACID 500 MG TABLET PO SCH ×2 (08:29→20:14)
[2020-10-16] MEDS: ZINC SULFATE 220 MG CAPSULE PO SCH (08:29)
[2020-10-16] MEDS: CHOLECALCIFEROL (VIT D3) 1,000 UNITS [25 MCG] TABLET PO SCH (08:30)
[2020-10-16] MEDS: CARVEDILOL 3.125 MG TABLET PO SCH ×2 (08:30→20:14)
[2020-10-16] MEDS: ASPIRIN 81 MG CHEWABLE TABLET PO SCH (08:30)
[2020-10-16] MEDS: FAMOTIDINE 20 MG TABLET PO SCH (08:30)
[2020-10-16] MEDS: INSULIN GLARGINE,HUM.REC.ANLOG 100 UNITS/ML SQ SCH ×2 (08:32→20:26)
[2020-10-16 08:45] VITALS: BP 124/72
[2020-10-16 10:20] LABS: GLUCOMETER DEV NAME(LOC) 5N.3; GLUCOSE,POINT OF CARE 158 MG/DL (70-110)
[2020-10-16] MEDS: AZITHROMYCIN 500 MG/NS 250 ML IV SCH (11:11)
[2020-10-16 11:12] LABS: BASOPHILS % (AUTO) 0.1 % (0.0-2.0); HEMATOCRIT 31.7 % (41-53); HEMOGLOBIN 10.2 g/dL (13.5-17.5); LYMPHOCYTES % (AUTO) 14.3 % (22.0-44.0); MEAN CORPUSCULAR HEMOGLOBIN 29.6 pg (26.0-34.0); MEAN CORPUSCULAR HGB CONC 32.3 G/dL (31.0-37.0); MEAN CORPUSCULAR VOLUME 92 fL (80-100); MONOCYTES # (AUTO) 0.4 K/uL (0.1-1.0); NEUTROPHILS # (AUTO) 5.6 K/uL (1.8-7.7); NEUTROPHILS % (AUTO) 78.6 % (40.0-70.0); PLATELET COUNT (AUTO) 265 K/uL (150-450); RED BLOOD CELL COUNT(AUTO) 3.45 MIL/uL (4.50-5.90); RED CELL DISTRIBUTION WIDTH 13.3 % (11.5-14.5)
[2020-10-16 11:30] LABS: D-DIMER 0.82 mg/L FEU (0.00-0.50)
[2020-10-16 11:49] LABS: ALBUMIN 1.6 g/dL (3.4-5.0); BILIRUBIN,TOTAL 0.1 mg/dL (0.1-1.0); C-REACTIVE PROTEIN QUANT 1.08 mg/dL (0.00-0.30); CALCIUM, TOTAL 8.3 mg/dL (8.8-10.5); CREATININE 2.32 mg/dL (0.60-1.30); MAGNESIUM 1.8 mg/dL (1.80-2.40); PHOSPHORUS 4.6 mg/dL (2.5-4.9); POTASSIUM 3.9 mmol/L (3.5-5.1); TOTAL PROTEIN, SERUM 5.5 g/dL (6.4-8.2)
[2020-10-16 11:54] VITALS: BP 126/70
[2020-10-16] MEDS: CefTRIAXone 1 GM/DEXTROSE 50 ML IV SCH (15:08)
[2020-10-16] MEDS: REMDESIVIR 100 MG in SODIUM CHLORIDE 0.9% 250 ML IV SCH (15:52)
[2020-10-16 16:16] VITALS: BP 133/76
[2020-10-16 20:02] LABS: GLUCOMETER DEV NAME(LOC) 5S.2B; GLUCOSE,POINT OF CARE 398 MG/DL (70-110)
[2020-10-16 20:27] VITALS: BP 123/68
[2020-10-16 22:00] LABS: GLUCOMETER DEV NAME(LOC) 5S.1; GLUCOSE,POINT OF CARE 390 MG/DL (70-110)
[2020-10-17 00:05] VITALS: BP 146/83
[2020-10-17] MEDS: INSULIN LISPRO 100 UNITS/ML SQ PRN ×4 (06:14→20:39)
[2020-10-17 06:27] VITALS: BP 128/76
[2020-10-17 06:48] LABS: EOSINOPHILS % (AUTO) 1.3 % (1.0-6.0); LYMPHOCYTES # (AUTO) 1.6 K/uL (1.0-4.8); MEAN CORPUSCULAR HEMOGLOBIN 30.2 pg (26.0-34.0); MEAN CORPUSCULAR HGB CONC 33.3 G/dL (31.0-37.0); MEAN CORPUSCULAR VOLUME 91 fL (80-100); MONOCYTES # (AUTO) 0.6 K/uL (0.1-1.0); MONOCYTES % (AUTO) 6.9 % (2.0-9.0); NEUTROPHILS # (AUTO) 6.4 K/uL (1.8-7.7); NEUTROPHILS % (AUTO) 73.8 % (40.0-70.0); PLATELET COUNT (AUTO) 267 K/uL (150-450); RED BLOOD CELL COUNT(AUTO) 3.31 MIL/uL (4.50-5.90); RED CELL DISTRIBUTION WIDTH 13.4 % (11.5-14.5)
[2020-10-17 06:57] LABS: D-DIMER 0.54 mg/L FEU (0.00-0.50)
[2020-10-17 07:42] VITALS: BP 137/79
[2020-10-17] MEDS: DEXAMETHASONE SOD PHOS 4 MG/ML VIAL IVP SCH (08:01)
[2020-10-17] MEDS: FAMOTIDINE 20 MG TABLET PO SCH (08:01)
[2020-10-17] MEDS: CARVEDILOL 3.125 MG TABLET PO SCH ×2 (08:02→20:28)
[2020-10-17] MEDS: CHOLECALCIFEROL (VIT D3) 1,000 UNITS [25 MCG] TABLET PO SCH (08:02)
[2020-10-17] MEDS: ZINC SULFATE 220 MG CAPSULE PO SCH (08:02)
[2020-10-17] MEDS: ASCORBIC ACID 500 MG TABLET PO SCH ×2 (08:02→20:28)
[2020-10-17] MEDS: ASPIRIN 81 MG CHEWABLE TABLET PO SCH (08:04)
[2020-10-17] MEDS: INSULIN GLARGINE,HUM.REC.ANLOG 100 UNITS/ML SQ SCH ×2 (08:04→20:39)
[2020-10-17 08:08] LABS: ALBUMIN 1.6 g/dL (3.4-5.0); BILIRUBIN,TOTAL 0.1 mg/dL (0.1-1.0); C-REACTIVE PROTEIN QUANT 0.74 mg/dL (0.00-0.30); CALCIUM, TOTAL 8.4 mg/dL (8.8-10.5); CREATININE 2.38 mg/dL (0.60-1.30); MAGNESIUM 1.8 mg/dL (1.80-2.40); PHOSPHORUS 4.4 mg/dL (2.5-4.9); POTASSIUM 4.2 mmol/L (3.5-5.1); TOTAL PROTEIN, SERUM 5.4 g/dL (6.4-8.2)
[2020-10-17 11:30] LABS: GLUCOMETER DEV NAME(LOC) 5S.1; GLUCOSE,POINT OF CARE 154 MG/DL (70-110)
[2020-10-17 12:03] VITALS: BP 112/62
[2020-10-17] MEDS: AZITHROMYCIN 500 MG/NS 250 ML IV SCH (12:24)
[2020-10-17] MEDS: HEPARIN SODIUM 25000 UNITS/D5W 250 ML IV PRN (12:33)
[2020-10-17] MEDS: CefTRIAXone 1 GM/DEXTROSE 50 ML IV SCH (14:38)
[2020-10-17] MEDS: REMDESIVIR 100 MG in SODIUM CHLORIDE 0.9% 250 ML IV SCH (15:43)
[2020-10-17 15:46] VITALS: BP 102/49
[2020-10-17 16:01] LABS: GLUCOMETER DEV NAME(LOC) 5N.3; GLUCOSE,POINT OF CARE 274 MG/DL (70-110)
[2020-10-17 16:14] LABS: ALBUMIN URINE (ELP) 42.9 %
[2020-10-17 19:46] VITALS: BP 146/82
[2020-10-17 20:52] LABS: GLUCOMETER DEV NAME(LOC) 5S.2B; GLUCOSE,POINT OF CARE 358 MG/DL (70-110)
[2020-10-18 00:28] VITALS: BP 145/76
[2020-10-18 04:07] VITALS: BP 137/72
[2020-10-18 06:04] LABS: GLUCOMETER DEV NAME(LOC) 5N.1B; GLUCOSE,POINT OF CARE 284 MG/DL (70-110)
[2020-10-18] MEDS: INSULIN LISPRO 100 UNITS/ML SQ PRN ×3 (06:10→17:59)
[2020-10-18 06:48] LABS: BASOPHILS % (AUTO) 0.7 % (0.0-2.0); HEMATOCRIT 32.6 % (41-53); HEMOGLOBIN 10.6 g/dL (13.5-17.5); LYMPHOCYTES # (AUTO) 1.7 K/uL (1.0-4.8); LYMPHOCYTES % (AUTO) 16.9 % (22.0-44.0); MEAN CORPUSCULAR HEMOGLOBIN 29.8 pg (26.0-34.0); MEAN CORPUSCULAR HGB CONC 32.5 G/dL (31.0-37.0); MEAN CORPUSCULAR VOLUME 92 fL (80-100); MONOCYTES # (AUTO) 0.6 K/uL (0.1-1.0); MONOCYTES % (AUTO) 6.4 % (2.0-9.0); NEUTROPHILS # (AUTO) 7.4 K/uL (1.8-7.7); PLATELET COUNT (AUTO) 246 K/uL (150-450); RED BLOOD CELL COUNT(AUTO) 3.57 MIL/uL (4.50-5.90); RED CELL DISTRIBUTION WIDTH 13.5 % (11.5-14.5)
[2020-10-18 07:34] VITALS: BP 105/62
[2020-10-18 07:41] LABS: ALBUMIN 1.6 g/dL (3.4-5.0); BILIRUBIN,TOTAL 0.4 mg/dL (0.1-1.0); C-REACTIVE PROTEIN QUANT 0.54 mg/dL (0.00-0.30); CALCIUM, TOTAL 8.3 mg/dL (8.8-10.5); CREATININE 2.08 mg/dL (0.60-1.30); MAGNESIUM 1.7 mg/dL (1.80-2.40); PHOSPHORUS 4.2 mg/dL (2.5-4.9); POTASSIUM 4.4 mmol/L (3.5-5.1); TOTAL PROTEIN, SERUM 5.2 g/dL (6.4-8.2)
[2020-10-18] MEDS: CHOLECALCIFEROL (VIT D3) 1,000 UNITS [25 MCG] TABLET PO SCH (08:15)
[2020-10-18] MEDS: FAMOTIDINE 20 MG TABLET PO SCH (08:16)
[2020-10-18] MEDS: ZINC SULFATE 220 MG CAPSULE PO SCH (08:16)
[2020-10-18] MEDS: ASPIRIN 81 MG CHEWABLE TABLET PO SCH (08:16)
[2020-10-18] MEDS: DEXAMETHASONE SOD PHOS 4 MG/ML VIAL IVP SCH (08:17)
[2020-10-18] MEDS: CARVEDILOL 3.125 MG TABLET PO SCH (08:17)
[2020-10-18] MEDS: ASCORBIC ACID 500 MG TABLET PO SCH (08:18)
[2020-10-18] MEDS: HEPARIN SODIUM 25000 UNITS/D5W 250 ML IV PRN (08:23)
[2020-10-18] MEDS: INSULIN GLARGINE,HUM.REC.ANLOG 100 UNITS/ML SQ SCH (08:31)
[2020-10-18 11:42] VITALS: BP 123/72
[2020-10-18] MEDS: CefTRIAXone 1 GM/DEXTROSE 50 ML IV SCH (15:40)
[2020-10-18] MEDS: REMDESIVIR 100 MG in SODIUM CHLORIDE 0.9% 250 ML IV SCH (16:26)
[2020-10-18 16:35] VITALS: BP 128/83
[2020-10-18 20:42] VITALS: BP 136/80
[2020-10-19] MEDS: ASCORBIC ACID 500 MG TABLET PO SCH ×3 (00:31→22:21)
[2020-10-19] MEDS: CARVEDILOL 3.125 MG TABLET PO SCH ×3 (00:31→22:22)
[2020-10-19] MEDS: INSULIN GLARGINE,HUM.REC.ANLOG 100 UNITS/ML SQ SCH ×3 (00:33→22:37)
[2020-10-19 00:49] VITALS: BP 132/77
[2020-10-19 04:47] VITALS: BP 132/68
[2020-10-19 07:52] VITALS: BP 101/57
[2020-10-19] MEDS: ASPIRIN 81 MG CHEWABLE TABLET PO SCH (08:20)
[2020-10-19] MEDS: FAMOTIDINE 20 MG TABLET PO SCH (08:20)
[2020-10-19] MEDS: CHOLECALCIFEROL (VIT D3) 1,000 UNITS [25 MCG] TABLET PO SCH (08:20)
[2020-10-19] MEDS: DEXAMETHASONE SOD PHOS 4 MG/ML VIAL IVP SCH (08:21)
[2020-10-19 08:37] LABS: D-DIMER 0.58 mg/L FEU (0.00-0.50)
[2020-10-19 08:39] LABS: ALBUMIN 1.6 g/dL (3.4-5.0); BILIRUBIN,TOTAL 0.2 mg/dL (0.1-1.0); CREATININE 2.12 mg/dL (0.60-1.30); POTASSIUM 4.4 mmol/L (3.5-5.1); TOTAL PROTEIN, SERUM 5.1 g/dL (6.4-8.2)
[2020-10-19 08:48] LABS: GLUCOMETER DEV NAME(LOC) 5S.2B; GLUCOSE,POINT OF CARE 212 MG/DL (70-110)
[2020-10-19 08:49] LABS: GLUCOMETER DEV NAME(LOC) 5S.2B; GLUCOSE,POINT OF CARE 379 MG/DL (70-110)
[2020-10-19 08:50] LABS: GLUCOMETER DEV NAME(LOC) 5S.2B; GLUCOSE,POINT OF CARE 193 MG/DL (70-110)
[2020-10-19 08:51] LABS: GLUCOMETER DEV NAME(LOC) 5S.2B; GLUCOSE,POINT OF CARE 145 MG/DL (70-110)
[2020-10-19 09:10] LABS: C-REACTIVE PROTEIN QUANT 0.39 mg/dL (0.00-0.30)
[2020-10-19] MEDS: ZINC SULFATE 220 MG CAPSULE PO SCH (10:49)
[2020-10-19] MEDS: HEPARIN SODIUM 25000 UNITS/D5W 250 ML IV PRN (11:53)
[2020-10-19] MEDS: INSULIN LISPRO 100 UNITS/ML SQ PRN ×3 (11:55→22:38)
[2020-10-19 12:11] VITALS: BP 117/67
[2020-10-19 12:52] LABS: GLUCOMETER DEV NAME(LOC) 5S.1; GLUCOSE,POINT OF CARE 291 MG/DL (70-110)
[2020-10-19] MEDS: CefTRIAXone 1 GM/DEXTROSE 50 ML IV SCH (16:05)
[2020-10-19 16:36] VITALS: BP 104/56
[2020-10-19] MEDS: REMDESIVIR 100 MG in SODIUM CHLORIDE 0.9% 250 ML IV SCH (17:14)
[2020-10-19 21:31] VITALS: BP 128/79
[2020-10-20 00:36] VITALS: BP 151/86
[2020-10-20 02:41] VITALS: BP 121/75
[2020-10-20 05:47] LABS: GLUCOMETER DEV NAME(LOC) 5S.2B; GLUCOSE,POINT OF CARE 311 MG/DL (70-110)
[2020-10-20 05:47] LABS: GLUCOMETER DEV NAME(LOC) 5S.1; GLUCOSE,POINT OF CARE 335 MG/DL (70-110)
[2020-10-20] MEDS: INSULIN LISPRO 100 UNITS/ML SQ PRN ×3 (06:44→20:49)
[2020-10-20] MEDS: INSULIN GLARGINE,HUM.REC.ANLOG 100 UNITS/ML SQ SCH ×2 (08:36→20:55)
[2020-10-20] MEDS: DEXAMETHASONE SOD PHOS 4 MG/ML VIAL IVP SCH (08:41)
[2020-10-20] MEDS: FAMOTIDINE 20 MG TABLET PO SCH (08:42)
[2020-10-20] MEDS: ASPIRIN 81 MG CHEWABLE TABLET PO SCH (08:42)
[2020-10-20] MEDS: CHOLECALCIFEROL (VIT D3) 1,000 UNITS [25 MCG] TABLET PO SCH (08:42)
[2020-10-20] MEDS: ASCORBIC ACID 500 MG TABLET PO SCH ×2 (08:42→20:47)
[2020-10-20] MEDS: CARVEDILOL 3.125 MG TABLET PO SCH ×2 (08:42→20:47)
[2020-10-20] MEDS: ZINC SULFATE 220 MG CAPSULE PO SCH (08:43)
[2020-10-20 10:21] VITALS: BP 114/67
[2020-10-20 11:55] LABS: GLUCOMETER DEV NAME(LOC) 6S.1; GLUCOSE,POINT OF CARE 174 MG/DL (70-110)
[2020-10-20] MEDS: CefTRIAXone 1 GM/DEXTROSE 50 ML IV SCH (14:44)
[2020-10-20 16:16] LABS: GLUCOMETER DEV NAME(LOC) 6S.1; GLUCOSE,POINT OF CARE 360 MG/DL (70-110)
[2020-10-20 16:26] VITALS: BP 128/78
[2020-10-20] MEDS ORDERED: INSULIN LISPRO 100 UNITS/ML SQ ONE (18:00)
[2020-10-20 20:00] VITALS: BP 132/74
[2020-10-20 21:16] LABS: GLUCOMETER DEV NAME(LOC) 6N.2; GLUCOSE,POINT OF CARE 310 MG/DL (70-110)
[2020-10-20 22:13] LABS: GLUCOMETER DEV NAME(LOC) 6S.1; GLUCOSE,POINT OF CARE 448 MG/DL (70-110)
[2020-10-21 04:23] VITALS: BP 140/80
[2020-10-21] MEDS: INSULIN LISPRO 100 UNITS/ML SQ PRN ×4 (05:50→21:35)
[2020-10-21 06:54] LABS: GLUCOMETER DEV NAME(LOC) 6N.2; GLUCOSE,POINT OF CARE 146 MG/DL (70-110)
[2020-10-21 07:41] LABS: BASOPHILS % (AUTO) 0.5 % (0.0-2.0); EOSINOPHILS % (AUTO) 0.5 % (1.0-6.0); HEMATOCRIT 31.1 % (41-53); HEMOGLOBIN 10.3 g/dL (13.5-17.5); LYMPHOCYTES # (AUTO) 2.2 K/uL (1.0-4.8); LYMPHOCYTES % (AUTO) 19.6 % (22.0-44.0); MEAN CORPUSCULAR HEMOGLOBIN 30.2 pg (26.0-34.0); MEAN CORPUSCULAR HGB CONC 33.2 G/dL (31.0-37.0); MEAN CORPUSCULAR VOLUME 91 fL (80-100); MONOCYTES # (AUTO) 0.7 K/uL (0.1-1.0); NEUTROPHILS # (AUTO) 8.4 K/uL (1.8-7.7); NEUTROPHILS % (AUTO) 73.4 % (40.0-70.0); PLATELET COUNT (AUTO) 224 K/uL (150-450); RED BLOOD CELL COUNT(AUTO) 3.42 MIL/uL (4.50-5.90); RED CELL DISTRIBUTION WIDTH 13.7 % (11.5-14.5)
[2020-10-21 07:57] LABS: ALBUMIN 1.7 g/dL (3.4-5.0); BILIRUBIN,TOTAL 0.2 mg/dL (0.1-1.0); C-REACTIVE PROTEIN QUANT 0.22 mg/dL (0.00-0.30); CREATININE 2.36 mg/dL (0.60-1.30); POTASSIUM 4.3 mmol/L (3.5-5.1); TOTAL PROTEIN, SERUM 5.2 g/dL (6.4-8.2)
[2020-10-21 08:12] VITALS: BP 120/77
[2020-10-21] MEDS: FAMOTIDINE 20 MG TABLET PO SCH (08:29)
[2020-10-21] MEDS: CHOLECALCIFEROL (VIT D3) 1,000 UNITS [25 MCG] TABLET PO SCH (08:29)
[2020-10-21] MEDS: ASPIRIN 81 MG CHEWABLE TABLET PO SCH (08:30)
[2020-10-21] MEDS: ZINC SULFATE 220 MG CAPSULE PO SCH (08:31)
[2020-10-21] MEDS: ASCORBIC ACID 500 MG TABLET PO SCH ×2 (08:31→21:33)
[2020-10-21] MEDS: CARVEDILOL 3.125 MG TABLET PO SCH ×2 (08:31→21:33)
[2020-10-21] MEDS: DEXAMETHASONE SOD PHOS 4 MG/ML VIAL IVP SCH (08:35)
[2020-10-21] MEDS: INSULIN GLARGINE,HUM.REC.ANLOG 100 UNITS/ML SQ SCH ×2 (08:36→21:35)
[2020-10-21 09:02] LABS: D-DIMER 0.44 mg/L FEU (0.00-0.50)
[2020-10-21] MEDS: HEPARIN SODIUM,PORCINE 5,000 UNITS/ML VIAL IVP PRN (10:39)
[2020-10-21 14:20] LABS: GLUCOMETER DEV NAME(LOC) 6N.2; GLUCOSE,POINT OF CARE 242 MG/DL (70-110)
[2020-10-21 15:48] VITALS: BP 125/67
[2020-10-21 18:04] LABS: GLUCOMETER DEV NAME(LOC) 6S.1; GLUCOSE,POINT OF CARE 352 MG/DL (70-110)
[2020-10-21] MEDS: HEPARIN SODIUM 25000 UNITS/D5W 250 ML IV PRN (18:58)
[2020-10-21 19:27] VITALS: BP 125/69
[2020-10-21 23:54] VITALS: BP 125/76
[2020-10-22 05:48] VITALS: BP 115/67
[2020-10-22 06:43] LABS: GLUCOMETER DEV NAME(LOC) 6S.1; GLUCOSE,POINT OF CARE 290 MG/DL (70-110)
[2020-10-22 07:35] VITALS: BP 116/67
[2020-10-22] MEDS: CHOLECALCIFEROL (VIT D3) 1,000 UNITS [25 MCG] TABLET PO SCH (08:48)
[2020-10-22] MEDS: CARVEDILOL 3.125 MG TABLET PO SCH ×2 (08:49→20:28)
[2020-10-22] MEDS: ASCORBIC ACID 500 MG TABLET PO SCH ×2 (08:49→20:28)
[2020-10-22] MEDS: ASPIRIN 81 MG CHEWABLE TABLET PO SCH (08:49)
[2020-10-22] MEDS: FAMOTIDINE 20 MG TABLET PO SCH (08:49)
[2020-10-22] MEDS: ZINC SULFATE 220 MG CAPSULE PO SCH (08:49)
[2020-10-22] MEDS: DEXAMETHASONE SOD PHOS 4 MG/ML VIAL IVP SCH (08:50)
[2020-10-22] MEDS: INSULIN LISPRO 100 UNITS/ML SQ PRN ×3 (09:00→20:29)
[2020-10-22] MEDS: INSULIN GLARGINE,HUM.REC.ANLOG 100 UNITS/ML SQ SCH ×2 (09:00→20:30)
[2020-10-22 11:37] VITALS: BP 110/71
[2020-10-22 15:20] VITALS: BP 114/68
[2020-10-22 19:54] LABS: GLUCOMETER DEV NAME(LOC) 6S.1; GLUCOSE,POINT OF CARE 176 MG/DL (70-110)
[2020-10-22 19:55] LABS: GLUCOMETER DEV NAME(LOC) 6N.2; GLUCOSE,POINT OF CARE 241 MG/DL (70-110)
[2020-10-22 19:55] LABS: GLUCOMETER DEV NAME(LOC) 6N.2; GLUCOSE,POINT OF CARE 185 MG/DL (70-110)
[2020-10-22 20:30] VITALS: BP 122/67
[2020-10-22 23:53] VITALS: BP 131/77
[2020-10-23 00:56] LABS: GLUCOMETER DEV NAME(LOC) 6S.1; GLUCOSE,POINT OF CARE 295 MG/DL (70-110)
[2020-10-23 05:23] VITALS: BP 123/75
[2020-10-23] MEDS: HEPARIN SODIUM 25000 UNITS/D5W 250 ML IV PRN (05:30)
[2020-10-23] MEDS: INSULIN LISPRO 100 UNITS/ML SQ PRN ×4 (05:41→20:10)
[2020-10-23 06:10] LABS: GLUCOMETER DEV NAME(LOC) 6N.2; GLUCOSE,POINT OF CARE 232 MG/DL (70-110)
[2020-10-23 07:07] LABS: D-DIMER 0.34 mg/L FEU (0.00-0.50)
[2020-10-23 07:34] VITALS: BP 115/69
[2020-10-23] MEDS: ASPIRIN 81 MG CHEWABLE TABLET PO SCH (08:42)
[2020-10-23] MEDS: CARVEDILOL 3.125 MG TABLET PO SCH ×2 (08:43→21:00)
[2020-10-23] MEDS: ZINC SULFATE 220 MG CAPSULE PO SCH (08:43)
[2020-10-23] MEDS: ASCORBIC ACID 500 MG TABLET PO SCH ×2 (08:43→21:00)
[2020-10-23] MEDS: FAMOTIDINE 20 MG TABLET PO SCH (08:43)
[2020-10-23] MEDS: CHOLECALCIFEROL (VIT D3) 1,000 UNITS [25 MCG] TABLET PO SCH (08:46)
[2020-10-23] MEDS: INSULIN GLARGINE,HUM.REC.ANLOG 100 UNITS/ML SQ SCH ×2 (09:02→20:11)
[2020-10-23 15:53] VITALS: BP 102/63
[2020-10-23 19:48] LABS: GLUCOMETER DEV NAME(LOC) 6S.1; GLUCOSE,POINT OF CARE 233 MG/DL (70-110)
[2020-10-23 19:48] LABS: GLUCOMETER DEV NAME(LOC) 6S.1; GLUCOSE,POINT OF CARE 248 MG/DL (70-110)
[2020-10-23 20:39] VITALS: BP 111/64
[2020-10-23 22:06] LABS: GLUCOMETER DEV NAME(LOC) 6S.1; GLUCOSE,POINT OF CARE 330 MG/DL (70-110)
[2020-10-24] MEDS: INSULIN LISPRO 100 UNITS/ML SQ PRN ×3 (05:49→17:11)
[2020-10-24] MEDS: INSULIN GLARGINE,HUM.REC.ANLOG 100 UNITS/ML SQ SCH ×2 (08:32→20:17)
[2020-10-24] MEDS: ASPIRIN 81 MG CHEWABLE TABLET PO SCH (08:32)
[2020-10-24] MEDS: CARVEDILOL 3.125 MG TABLET PO SCH ×2 (08:32→20:07)
[2020-10-24] MEDS: FAMOTIDINE 20 MG TABLET PO SCH (08:33)
[2020-10-24] MEDS: CHOLECALCIFEROL (VIT D3) 1,000 UNITS [25 MCG] TABLET PO SCH (08:33)
[2020-10-24] MEDS: ASCORBIC ACID 500 MG TABLET PO SCH ×2 (08:33→20:07)
[2020-10-24] MEDS: ZINC SULFATE 220 MG CAPSULE PO SCH (08:33)
[2020-10-24 08:48] VITALS: BP 118/66
[2020-10-24 15:35] VITALS: BP 116/68
[2020-10-24 16:23] LABS: GLUCOMETER DEV NAME(LOC) 6N.2; GLUCOSE,POINT OF CARE 214 MG/DL (70-110)
[2020-10-24 16:23] LABS: GLUCOMETER DEV NAME(LOC) 6N.2; GLUCOSE,POINT OF CARE 141 MG/DL (70-110)
[2020-10-24 19:19] LABS: GLUCOMETER DEV NAME(LOC) 6N.2; GLUCOSE,POINT OF CARE 236 MG/DL (70-110)
[2020-10-24 23:40] VITALS: BP 130/76
[2020-10-25 00:20] LABS: GLUCOMETER DEV NAME(LOC) 6S.1; GLUCOSE,POINT OF CARE 295 MG/DL (70-110)
[2020-10-25 04:50] VITALS: BP 105/55
[2020-10-25 07:10] LABS: BASOPHILS % (AUTO) 0.9 % (0.0-2.0); EOSINOPHILS % (AUTO) 2.7 % (1.0-6.0); HEMATOCRIT 33.4 % (41-53); LYMPHOCYTES # (AUTO) 1.3 K/uL (1.0-4.8); LYMPHOCYTES % (AUTO) 16.3 % (22.0-44.0); MEAN CORPUSCULAR HEMOGLOBIN 30.6 pg (26.0-34.0); MEAN CORPUSCULAR VOLUME 93 fL (80-100); MONOCYTES # (AUTO) 0.6 K/uL (0.1-1.0); MONOCYTES % (AUTO) 6.9 % (2.0-9.0); NEUTROPHILS % (AUTO) 73.2 % (40.0-70.0); PLATELET COUNT (AUTO) 168 K/uL (150-450); RED BLOOD CELL COUNT(AUTO) 3.61 MIL/uL (4.50-5.90); RED CELL DISTRIBUTION WIDTH 15.5 % (11.5-14.5)
[2020-10-25 07:48] LABS: GLUCOMETER DEV NAME(LOC) 6S.1; GLUCOSE,POINT OF CARE 136 MG/DL (70-110)
[2020-10-25 07:49] LABS: ALBUMIN 1.9 g/dL (3.4-5.0); BILIRUBIN,TOTAL 0.4 mg/dL (0.1-1.0); CALCIUM, TOTAL 8.3 mg/dL (8.8-10.5); CREATININE 2.36 mg/dL (0.60-1.30); TOTAL PROTEIN, SERUM 5.3 g/dL (6.4-8.2)
[2020-10-25] MEDS: INSULIN GLARGINE,HUM.REC.ANLOG 100 UNITS/ML SQ SCH ×2 (08:30→22:07)
[2020-10-25] MEDS: CARVEDILOL 3.125 MG TABLET PO SCH ×2 (08:31→21:35)
[2020-10-25] MEDS: CHOLECALCIFEROL (VIT D3) 1,000 UNITS [25 MCG] TABLET PO SCH (08:32)
[2020-10-25] MEDS: FAMOTIDINE 20 MG TABLET PO SCH (08:32)
[2020-10-25] MEDS: ZINC SULFATE 220 MG CAPSULE PO SCH (08:32)
[2020-10-25] MEDS: ASCORBIC ACID 500 MG TABLET PO SCH ×2 (08:32→21:35)
[2020-10-25] MEDS: ASPIRIN 81 MG CHEWABLE TABLET PO SCH (08:39)
[2020-10-25 09:06] VITALS: BP 112/63
[2020-10-25] MEDS: INSULIN LISPRO 100 UNITS/ML SQ PRN ×2 (11:29→17:32)
[2020-10-25 12:08] LABS: GLUCOMETER DEV NAME(LOC) 6N.2; GLUCOSE,POINT OF CARE 219 MG/DL (70-110)
[2020-10-25 16:02] VITALS: BP 124/72
[2020-10-25 20:31] VITALS: BP 125/70
[2020-10-25] MEDS ORDERED: ZOLPIDEM TARTRATE 5 MG TABLET PO PRN (21:30)
[2020-10-25 23:29] LABS: GLUCOMETER DEV NAME(LOC) 6N.2; GLUCOSE,POINT OF CARE 223 MG/DL (70-110)
[2020-10-26 00:08] LABS: GLUCOMETER DEV NAME(LOC) 6S.1; GLUCOSE,POINT OF CARE 203 MG/DL (70-110)
[2020-10-26 00:20] VITALS: BP 107/67
[2020-10-26 06:39] LABS: EOSINOPHILS % (AUTO) 2.5 % (1.0-6.0); HEMATOCRIT 34.6 % (41-53); HEMOGLOBIN 11.3 g/dL (13.5-17.5); LYMPHOCYTES # (AUTO) 1.5 K/uL (1.0-4.8); LYMPHOCYTES % (AUTO) 19.1 % (22.0-44.0); MEAN CORPUSCULAR HGB CONC 32.6 G/dL (31.0-37.0); MEAN CORPUSCULAR VOLUME 92 fL (80-100); MONOCYTES # (AUTO) 0.6 K/uL (0.1-1.0); MONOCYTES % (AUTO) 8.1 % (2.0-9.0); NEUTROPHILS # (AUTO) 5.3 K/uL (1.8-7.7); NEUTROPHILS % (AUTO) 69.3 % (40.0-70.0); PLATELET COUNT (AUTO) 147 K/uL (150-450); RED BLOOD CELL COUNT(AUTO) 3.76 MIL/uL (4.50-5.90); RED CELL DISTRIBUTION WIDTH 15.3 % (11.5-14.5)
[2020-10-26 07:11] LABS: GLUCOMETER DEV NAME(LOC) 6N.2; GLUCOSE,POINT OF CARE 118 MG/DL (70-110)
[2020-10-26 07:24] LABS: ALBUMIN 1.9 g/dL (3.4-5.0); BILIRUBIN,TOTAL 0.4 mg/dL (0.1-1.0); CALCIUM, TOTAL 8.1 mg/dL (8.8-10.5); CREATININE 2.55 mg/dL (0.60-1.30); TOTAL PROTEIN, SERUM 5.4 g/dL (6.4-8.2)
[2020-10-26 08:01] VITALS: BP 104/56
[2020-10-26] MEDS: CARVEDILOL 3.125 MG TABLET PO SCH ×2 (09:44→22:08)
[2020-10-26] MEDS: ASCORBIC ACID 500 MG TABLET PO SCH ×2 (09:44→22:08)
[2020-10-26] MEDS: CHOLECALCIFEROL (VIT D3) 1,000 UNITS [25 MCG] TABLET PO SCH (09:44)
[2020-10-26] MEDS: ASPIRIN 81 MG CHEWABLE TABLET PO SCH (09:44)
[2020-10-26] MEDS: ZINC SULFATE 220 MG CAPSULE PO SCH (09:44)
[2020-10-26] MEDS: FAMOTIDINE 20 MG TABLET PO SCH (09:45)
[2020-10-26] MEDS: INSULIN GLARGINE,HUM.REC.ANLOG 100 UNITS/ML SQ SCH ×2 (09:46→22:07)
[2020-10-26] MEDS: INSULIN LISPRO 100 UNITS/ML SQ PRN ×3 (11:51→22:08)
[2020-10-26 14:35] LABS: GLUCOMETER DEV NAME(LOC) 6N.2; GLUCOSE,POINT OF CARE 172 MG/DL (70-110)
[2020-10-26 19:50] VITALS: BP 128/75
[2020-10-26 23:55] VITALS: BP 113/67
[2020-10-27 01:50] LABS: GLUCOMETER DEV NAME(LOC) 6N.2; GLUCOSE,POINT OF CARE 251 MG/DL (70-110)
[2020-10-27 01:50] LABS: GLUCOMETER DEV NAME(LOC) 6N.2; GLUCOSE,POINT OF CARE 175 MG/DL (70-110)
[2020-10-27 05:35] VITALS: BP 126/73
[2020-10-27 06:27] LABS: EOSINOPHILS % (AUTO) 3.8 % (1.0-6.0); HEMATOCRIT 31.9 % (41-53); HEMOGLOBIN 10.4 g/dL (13.5-17.5); LYMPHOCYTES # (AUTO) 1.5 K/uL (1.0-4.8); LYMPHOCYTES % (AUTO) 23.6 % (22.0-44.0); MEAN CORPUSCULAR HEMOGLOBIN 30.6 pg (26.0-34.0); MEAN CORPUSCULAR HGB CONC 32.7 G/dL (31.0-37.0); MEAN CORPUSCULAR VOLUME 94 fL (80-100); MONOCYTES # (AUTO) 0.5 K/uL (0.1-1.0); MONOCYTES % (AUTO) 8.6 % (2.0-9.0); PLATELET COUNT (AUTO) 147 K/uL (150-450); RED BLOOD CELL COUNT(AUTO) 3.41 MIL/uL (4.50-5.90); RED CELL DISTRIBUTION WIDTH 15.4 % (11.5-14.5)
[2020-10-27 07:06] LABS: ALBUMIN 1.9 g/dL (3.4-5.0); BILIRUBIN,TOTAL 0.4 mg/dL (0.1-1.0); CALCIUM, TOTAL 8.4 mg/dL (8.8-10.5); CREATININE 2.55 mg/dL (0.60-1.30); POTASSIUM 4.9 mmol/L (3.5-5.1); TOTAL PROTEIN, SERUM 5.5 g/dL (6.4-8.2)
[2020-10-27 07:49] VITALS: BP 102/63
[2020-10-27 07:49] LABS: GLUCOMETER DEV NAME(LOC) 6N.2; GLUCOSE,POINT OF CARE 126 MG/DL (70-110)
[2020-10-27] MEDS: INSULIN GLARGINE,HUM.REC.ANLOG 100 UNITS/ML SQ SCH ×2 (09:05→22:22)
[2020-10-27] MEDS: ASCORBIC ACID 500 MG TABLET PO SCH ×2 (09:06→20:38)
[2020-10-27] MEDS: ZINC SULFATE 220 MG CAPSULE PO SCH (09:06)
[2020-10-27] MEDS: FAMOTIDINE 20 MG TABLET PO SCH (09:06)
[2020-10-27] MEDS: ASPIRIN 81 MG CHEWABLE TABLET PO SCH (09:06)
[2020-10-27] MEDS: CARVEDILOL 3.125 MG TABLET PO SCH ×2 (09:06→20:38)
[2020-10-27] MEDS: CHOLECALCIFEROL (VIT D3) 1,000 UNITS [25 MCG] TABLET PO SCH (09:06)
[2020-10-27] MEDS: INSULIN LISPRO 100 UNITS/ML SQ PRN ×3 (11:52→22:22)
[2020-10-27 13:12] LABS: GLUCOMETER DEV NAME(LOC) 6S.1; GLUCOSE,POINT OF CARE 178 MG/DL (70-110)
[2020-10-27 16:16] VITALS: BP 113/70
[2020-10-27 17:23] LABS: GLUCOMETER DEV NAME(LOC) 6N.2; GLUCOSE,POINT OF CARE 194 MG/DL (70-110)
[2020-10-27 20:18] VITALS: BP 111/69
[2020-10-28 00:26] VITALS: BP 108/69
[2020-10-28 01:32] LABS: GLUCOMETER DEV NAME(LOC) 6N.2; GLUCOSE,POINT OF CARE 247 MG/DL (70-110)
[2020-10-28 03:50] VITALS: BP 105/60
[2020-10-28 06:54] LABS: EOSINOPHILS % (AUTO) 4.6 % (1.0-6.0); HEMATOCRIT 31.5 % (41-53); HEMOGLOBIN 10.5 g/dL (13.5-17.5); LYMPHOCYTES # (AUTO) 1.2 K/uL (1.0-4.8); MEAN CORPUSCULAR HEMOGLOBIN 31.2 pg (26.0-34.0); MEAN CORPUSCULAR HGB CONC 33.3 G/dL (31.0-37.0); MEAN CORPUSCULAR VOLUME 94 fL (80-100); MONOCYTES # (AUTO) 0.5 K/uL (0.1-1.0); MONOCYTES % (AUTO) 7.5 % (2.0-9.0); NEUTROPHILS % (AUTO) 66.9 % (40.0-70.0); PLATELET COUNT (AUTO) 130 K/uL (150-450); RED BLOOD CELL COUNT(AUTO) 3.36 MIL/uL (4.50-5.90); RED CELL DISTRIBUTION WIDTH 16.1 % (11.5-14.5)
[2020-10-28 07:14] LABS: ALBUMIN 1.9 g/dL (3.4-5.0); BILIRUBIN,TOTAL 0.4 mg/dL (0.1-1.0); CALCIUM, TOTAL 8.1 mg/dL (8.8-10.5); CREATININE 2.66 mg/dL (0.60-1.30); POTASSIUM 4.9 mmol/L (3.5-5.1); TOTAL PROTEIN, SERUM 5.4 g/dL (6.4-8.2)
[2020-10-28] MEDS: CHOLECALCIFEROL (VIT D3) 1,000 UNITS [25 MCG] TABLET PO SCH (08:05)
[2020-10-28] MEDS: ASCORBIC ACID 500 MG TABLET PO SCH (08:05)
[2020-10-28] MEDS: ZINC SULFATE 220 MG CAPSULE PO SCH (08:05)
[2020-10-28] MEDS: ASPIRIN 81 MG CHEWABLE TABLET PO SCH (08:05)
[2020-10-28] MEDS: CARVEDILOL 3.125 MG TABLET PO SCH (08:06)
[2020-10-28] MEDS: FAMOTIDINE 20 MG TABLET PO SCH (08:06)
[2020-10-28] MEDS: INSULIN GLARGINE,HUM.REC.ANLOG 100 UNITS/ML SQ SCH (08:14)
[2020-10-28 08:16] LABS: GLUCOMETER DEV NAME(LOC) 6N.2; GLUCOSE,POINT OF CARE 112 MG/DL (70-110)
[2020-10-28 08:26] VITALS: BP 116/74
[2020-10-28] MEDS ORDERED: ASPI-728 PO (11:37)
[2020-10-28] MEDS ORDERED: CARV3 PO (11:37)
[2020-10-28] MEDS ORDERED: ASCO500 PO (11:37)
[2020-10-28] MEDS ORDERED: CHOL100018 PO (11:38)
[2020-10-28] MEDS ORDERED: ZINC220C14 PO (11:39)
[2020-10-28] MEDS ORDERED: FAMO10TA39 PO (11:39)
[2020-10-28] MEDS ORDERED: INSLAN SQ (11:39)
[2020-10-28] MEDS ORDERED: ACET-2865 PO (11:40)
[2020-10-28] MEDS ORDERED: INSU100V SQ (11:41)
[2020-10-28] MEDS: INSULIN LISPRO 100 UNITS/ML SQ PRN (12:05)
[2020-10-28 16:46] LABS: GLUCOMETER DEV NAME(LOC) 6S.1; GLUCOSE,POINT OF CARE 164 MG/DL (70-110)
== END 2020-10-28 14:00 | DRG 871 ==
LOC: EMS 12:47 → 5N 10-08 08:16 → 6N 10-20 02:41
PROVIDERS: ADMIT Internal Medicine; ATTEND Internal Medicine
PROC: XW033E5 Introduction of Remdesivir Anti-infective into Peripheral Vein, Percutaneous Approach, New Technology Group 5 (ICD-10-PCS; principal; 2020-10-08)
DX: A41.89 Other specified sepsis (principal); U07.1 COVID-19; J12.89 Other viral pneumonia; I21.A1 Myocardial infarction type 2; J96.01 Acute respiratory failure with hypoxia; N17.9 Acute kidney failure, unspecified; D68.59 Other primary thrombophilia; E87.1 Hypo-osmolality and hyponatremia; N39.0 Urinary tract infection, site not specified; E11.65 Type 2 diabetes mellitus with hyperglycemia; D63.8 Anemia in other chronic diseases classified elsewhere; D72.810 Lymphocytopenia; E11.22 Type 2 diabetes mellitus with diabetic chronic kidney disease; E11.319 Type 2 diabetes mellitus with unspecified diabetic retinopathy without macular edema; E11.40 Type 2 diabetes mellitus with diabetic neuropathy, unspecified; E11.51 Type 2 diabetes mellitus with diabetic peripheral angiopathy without gangrene; F20.9 Schizophrenia, unspecified; F31.9 Bipolar disorder, unspecified; G89.4 Chronic pain syndrome; I12.9 Hypertensive chronic kidney disease with stage 1 through stage 4 chronic kidney disease, or unspecified chronic kidney disease; N18.30 Chronic kidney disease, stage 3 unspecified; N40.0 Benign prostatic hyperplasia without lower urinary tract symptoms; Z86.718 Personal history of other venous thrombosis and embolism; Z88.8 Allergy status to other drugs, medicaments and biological substances
CPT/HCPCS: 36600; 74176; 82570; 82728; 82805; 83615; 83735; 84100; 84145; 84156; 84166; 84300; 85379; 86140; 87086; 87186; 87426; 92526; 92610; 93005; 97110; 97161; 97530; J0456; J0696; J1100; J1644; J1815; J3475; J3490; J7030; J7040; J7050; 36415-L1; 36415-TC; 71045-TC; U0003